=== PATIENT | female | born 1940 | race Caucasian/White ===

== ENCOUNTER 2016-08-22 03:39 | Emergency (ER) | payer MEDICARE, BC ==
[2016-08-22 03:48] VITALS: BP 140/60
[2016-08-22] MEDS ORDERED: LORazepam 2 MG/ML Syringe IVPUSH ONE (04:13)
--- NOTE | 2016-08-22 04:18 | EDM.PDOC ---
ED HPI GENERAL MEDICAL PROBLEM - General Chief Complaint: Cardiovascular Problem Stated Complaint: NAUSEOUS Time Seen by Provider: 08/22/16 04:14 Source of Information: Reports: Patient History Limitations: Reports: No Limitations - History of Present Illness INITIAL COMMENTS - FREE TEXT/NARRATIVE: gives h/o inner ear problem for many years and been taking meclizine for it. 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 denies vertigo but feels like passing out. denies associated CP/SOB/ FRANCO. nausous but no vomiting. denies weakness to legs. - Related Data Allergies Allergy/AdvReac Type Severity Reaction Status Date / Time oxycodone Allergy Dizziness Verified 08/22/16 03:48 penicillin Allergy Swelling Verified 08/22/16 03:48 Sulfa (Sulfonamide Allergy Itching Verified 08/22/16 03:48 Antibiotics) Home Meds: Home Meds Hydrochlorothiazide 25 mg PO DAILY 09/10/14 [History] Latanoprost [Xalatan 0.005% Ophth Soln] 1 drop EYEBOTH BEDTIME 09/10/14 [History ] Levothyroxine 75 mcg PO DAILY 09/10/14 [History] amLODIPine Besylate/Benazepril [Amlodipine-Benazepril 5-10 MG] 1 tab PO DAILY [History] atorvaSTATin [Lipitor] 10 mg PO BEDTIME 09/10/14 [History] Ascorbate Calcium [Vitamin C] 500 mg PO DAILY 07/22/15 [History] Aspirin 81 mg PO BRK 07/22/15 [History] Calcium Citrate/Vitamin D3 [Citracal + D Maximum Caplet] 2 each PO DAILY [History] Cinnamon Bark [Cinnamon] 1,000 mg PO DAILY 07/22/15 [History] Cyanocobalamin (Vitamin B-12) [Vitamin B-12] 100 mcg PO DAILY 07/22/15 [History] Fish Oil/DHA/EPA [Fish Oil 1,200 MG] 1 each PO DAILY 07/22/15 [History] Flaxseed Oil [Flaxseed] 1,000 mg PO DAILY 07/22/15 [History] LORazepam 0.5 mg PO BID PRN 07/22/15 [History] Meclizine [Antivert] 10 mg PO DAILY PRN 07/22/15 [History] Melatonin 5 mg PO BEDTIME 07/22/15 [History] Multivitamin [Multivitamins] 1 each PO DAILY 07/22/15 [History] Naproxen Sodium [Aleve] 2 tab PO DAILY PRN 07/22/15 [History] Polyethylene Glycol 3350 [Miralax] 17 gm PO DAILY 07/22/15 [History] Past Medical History HEENT History: Reports: Glaucoma Cardiovascular History: Reports: High Cholesterol, Hypertension Other Cardiovascular History: DVT 2014 Respiratory History: Reports: None Gastrointestinal History: Reports: Diverticulosis, Irritable Bowel Syndrome Genitourinary History: Reports: None 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: Musculoskeletal History: Reports: Arthritis, Gout Neurological History: Reports: None Psychiatric History: Reports: Anxiety Endocrine/Metabolic History: Reports: Hypothyroidism Hematologic History: Reports: Other (See Below) 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 Immunologic History: Reports: None Oncologic (Cancer) History: Reports: None Dermatologic History: Reports: None - Infectious Disease History Infectious Disease History: Reports: Chicken Pox, Measles - Past Surgical History Head Surgeries/Procedures: Reports: None Cardiovascular Surgical History: Reports: Vascular Surgery Female Surgical History: Reports: Hysterectomy, Salpingo-Oophorectomy Other Musculoskeletal Surgeries/Procedures:: bilateral bunion surgery, hammer toe repair Social & Family History - Family History HEENT: Reports: Glaucoma Cardiac: Reports: Heart Failure, Hypertension, [place] Respiratory: Reports: None GI: Reports: None : Reports: None OBGYN: Reports: None Musculoskeletal: Reports: Arthritis Neurological: Reports: CVA Psychiatric: Reports: None Endocrine/Metabolic: Reports: Diabetes, type II, Hypothyroidism Immunologic: Reports: None Dermatologic: Reports: Eczema Oncologic: Reports: Breast, Ovarian - Tobacco Use Smoking Status *Q: Never Smoker Second Hand Smoke Exposure: No - Caffeine Use Caffeine Use: Reports: Soda Caffeine Use Comment: 1 - Recreational Drug Use Recreational Drug Use: No - Living Situation & Occupation Living situation: Reports: , with Spouse Occupation: Retired ED ROS GENERAL - Review of Systems Review Of Systems: ROS reveals no pertinent complaints other than HPI. ED EXAM, GENERAL - Physical Exam Exam: See Below Exam Limited By: No Limitations General Appearance: Alert, WD/WN, Mild Distress, Other (dizziness) Eye Exam: Bilateral Eye: PERRL (pupils ess ER @ 4mm) Ears: Hearing Grossly Normal Throat/Mouth: Normal Voice, No Airway Compromise Head: Atraumatic Neck: Non-Tender, Full Range of Motion Respiratory/Chest: No Respiratory Distress Cardiovascular: Regular Rate, Rhythm GI/Abdominal: Soft, Non-Tender Neurological: Alert, Oriented, Normal Cognition, No Motor/Sensory Deficits, Other (gait limited to dizziness) Psychiatric: Flat Affect Skin Exam: Warm, Dry Lymphatic: No Adenopathy Course - Vital Signs Last Recorded V/S: Last Vital Signs Temp 36.0 C 08/22/16 03:44 Pulse 77 08/22/16 03:44 Resp 18 08/22/16 03:44 BP 140/60 08/22/16 03:44 Pulse Ox 100 08/22/16 03:44 Orthostatic Blood Pressure [ 154/65 Sitting] Orthostatic Blood Pressure [ 141/59 Supine] - Orders/Labs/Meds Orders: Active Orders 24 hr Category Date Time Status EKG 12 Lead [EKG Documentation Completion] [RC] STAT Care 08/22/16 04:12 Active Labs: Laboratory Tests 08/22/16 08/22/16 08/22/16 Range/Units 04:20 04:25 04:25 WBC 7.9 (5.0-10.0) 10^3/uL RBC 4.50 (4.2-5.4) 10^6/uL Hgb 15.0 (12.0-16.0) g/dL Hct 42.8 (37.0-47.0) % MCV 95.1 (80-100) fL MCH 33.3 (27.0-34.0) pg MCHC 35.0 (33.0-35.0) g/dL Plt Count 280 (150-450) 10^3/uL Neut % (Auto) 52.2 (42.2-75.2) % Lymph % (Auto) 36.9 (20.5-50.1) % Hawkins % (Auto) 8.9 H (2-8) % Eos % (Auto) 1.5 (1.0-3.0) % Baso % (Auto) 0.5 (0.0-1.0) % Sodium 138 (135-145) mmol/L Potassium 3.7 (3.6-5.0) mmol/L Chloride 100 L (101-111) mmol/L Carbon Dioxide 26.0 (21.0-31.0) mmol/L Anion Gap 15.7 BUN 17 (7-18) mg/dL Creatinine 0.6 (0.6-1.3) mg/dL Est Cr Clr Drug Dosing 56.40 mL/min Estimated GFR (MDRD) > 60 BUN/Creatinine Ratio 28.33 Glucose 129 H (74-105) mg/dL Calcium 10.2 (8.4-10.2) mg/dl Total Bilirubin 0.7 (0.2-1.0) mg/dL AST 27 (10-42) IU/L ALT 23 (10-60) IU/L Alkaline Phosphatase 97 (42-121) IU/L Troponin I < 0.02 (0.00-0.02) ng/ml Total Protein 7.3 (6.7-8.2) g/dl Albumin 4.5 (3.2-5.5) g/dl Globulin 2.8 Albumin/Globulin Ratio 1.61 Urine Color Light yellow (YELLOW) Urine Appearance Clear (CLEAR) Urine pH 8.5 (5.0-9.0) Ur Specific [place] 1.015 (1.005-1.030) Urine Protein Negative (NEGATIVE) Urine Glucose (UA) Negative (NEGATIVE) Urine Ketones Negative (NEGATIVE) Urine Occult Blood Negative (NEGATIVE) Urine Nitrite Negative (NEGATIVE) Urine Bilirubin Negative (NEGATIVE) Urine Urobilinogen 0.2 (0.2-1.0) mg/dL Ur Leukocyte Esterase Moderate H (NEGATIVE) Urine RBC 0-5 /HPF Urine WBC 5-10 H (0-5/HPF) /HPF Ur Epithelial Cells Occasional /HPF Urine Bacteria Moderate H (0-FEW/HPF) /HPF Meds: Medications Discontinued Medications Generic Name Dose Route Start Last Admin Trade Name Freq PRN Reason Stop Dose Admin Lorazepam 1 mg 08/22/16 04:13 Ativan IVPUSH 08/22/16 04:14 ONETIME ONE Meclizine HCl 12.5 mg 08/22/16 05:20 08/22/16 05:26 Antivert PO 08/22/16 05:21 12.5 mg ONETIME ONE Administration Promethazine HCl 25 mg 08/22/16 05:20 08/22/16 05:27 Phenergan IM 08/22/16 05:21 25 mg ONETIME ONE Administration - Re-Assessments/Exams Free Text/Narrative Re-Assessment/Exam: 08/22/16 06:04 re-exam; s/p IM phenergan + PO meclizine 30minutes = better. able to sit up. 08/22/16 06:29 re-exam; able to stand feeling much better but not 100%. wish to wait bit longer before leaving. 08/22/16 06:46 re-exam; feels good enough to go home. but still not 100% Departure - Departure Time of Disposition: 06:46 Disposition: Home, Self-Care 01 Condition: Good Clinical Impression: Vertigo Instructions: Vertigo, [id number] Forms: ED Department Discharge Additional Instructions: 1) see family doctor for possible ENT or NEUROLOGY REFERRAL 2) recheck if there is any change or concern 3) continue meclizine at home. - My Orders Last 24 Hours: My Active Orders 08/22/16 04:12 EKG 12 Lead [EKG Documentation Completion] [RC] STAT - Assessment/Plan Last 24 Hours: My Active Orders 08/22/16 04:12 EKG 12 Lead [EKG Documentation Completion] [RC] STAT
[2016-08-22 04:50] LABS: CHLORIDE,CL 100 mmol/L (101-111); SODIUM,NA 138 mmol/L (135-145)
[2016-08-22] MEDS ORDERED: Promethazine 25 MG/ML SDV IM ONE (05:20)
[2016-08-22] MEDS ORDERED: Meclizine 12.5 MG Tab PO ONE (05:20)
--- NOTE | 2016-09-12 11:18 | EKG ---
08/22/2016 - ALEJANDRA TERAN I reviewed the EKG and agree with the machine's reading. [facility] /[id number]
== END 2016-08-22 07:05 | disposition home or self-care (01) ==
LOC: DL.ED 03:39
DX: R42 Dizziness and giddiness (principal); E78.00 Pure hypercholesterolemia, unspecified; I10 Essential (primary) hypertension; M19.90 Unspecified osteoarthritis, unspecified site; F41.9 Anxiety disorder, unspecified; E03.9 Hypothyroidism, unspecified; Z90.710 Acquired absence of both cervix and uterus; Z98.890 Other specified postprocedural states; Z88.5 Allergy status to narcotic agent; Z88.0 Allergy status to penicillin; Z88.2 Allergy status to sulfonamides; Z79.899 Other long term (current) drug therapy; Z79.82 Long term (current) use of aspirin
CPT/HCPCS: 36415; 70450; 80053; 81001; 84484; 85025; 93005; 96372; 96374; 99284; A9270; J2550; 93010

== ENCOUNTER 2017-04-17 00:14 | Inpatient (IN) | payer MEDICARE, BC ==
[2017-04-17 01:23] LABS: CHLORIDE,CL 96 mmol/L (101-111); SODIUM,NA 131 mmol/L (135-145)
[2017-04-17] MEDS ORDERED: Potassium Chloride 10 MEQ in Premix Bag 1 BAG IV ONE (02:07)
[2017-04-17] MEDS ORDERED: Sodium Chloride 0.9% 1,000 ML IV ONE (02:08)
--- NOTE | 2017-04-17 04:04 | EDM.PDOC ---
ED HPI GENERAL MEDICAL PROBLEM - General Chief Complaint: Neurological Problem Stated Complaint: AMBULANCE Time Seen by Provider: 04/17/17 00:20 Source of Information: Reports: Patient History Limitations: Reports: No Limitations - History of Present Illness INITIAL COMMENTS - FREE TEXT/NARRATIVE: ED via [facility] with c/o dizziness. Reports hx of vertigo type symptoms. Started yesterday, took Meclazine and improved. Again this am around 1130, Tonight very dizzy, 2 loose stools, generalized weakness from feeling unsteady and dizzy. had to help her from Bathroom. Denies fever chills. No cold symptoms. Dizziness worse with movement and turning head. Some nausea . - Related Data Allergies Allergy/AdvReac Type Severity Reaction Status Date / Time oxycodone Allergy Dizziness Verified 04/17/17 04:45 penicillin Allergy Swelling Verified 04/17/17 04:45 Sulfa (Sulfonamide Allergy Itching Verified 04/17/17 04:45 Antibiotics) Home Meds: Home Meds Hydrochlorothiazide 25 mg PO DAILY 09/10/14 [History] Latanoprost [Xalatan 0.005% Ophth Soln] 1 drop EYEBOTH BEDTIME 09/10/14 [History ] Levothyroxine 75 mcg PO DAILY 09/10/14 [History] amLODIPine Besylate/Benazepril [Amlodipine-Benazepril 5-10 MG] 1 tab PO DAILY [History] atorvaSTATin [Lipitor] 10 mg PO BEDTIME 09/10/14 [History] Ascorbate Calcium [Vitamin C] 500 mg PO DAILY 07/22/15 [History] Aspirin 81 mg PO BRK 07/22/15 [History] Cinnamon Bark [Cinnamon] 1,000 mg PO DAILY 07/22/15 [History] Cyanocobalamin (Vitamin B-12) [Vitamin B-12] 100 mcg PO DAILY 07/22/15 [History] Flaxseed Oil [Flaxseed] 1,000 mg PO DAILY 07/22/15 [History] LORazepam 0.5 mg PO BID PRN 07/22/15 [History] Meclizine [Antivert] 10 mg PO DAILY PRN 07/22/15 [History] Melatonin 5 mg PO BEDTIME 07/22/15 [History] Multivitamin [Multivitamins] 1 each PO DAILY 07/22/15 [History] Naproxen Sodium [Aleve] 2 tab PO DAILY PRN 07/22/15 [History] Polyethylene Glycol 3350 [Miralax] 17 gm PO DAILY 07/22/15 [History] Past Medical History HEENT History: Reports: Glaucoma, Impaired Vision Cardiovascular History: Reports: High Cholesterol, Hypertension Other Cardiovascular History: DVT 2014 Respiratory History: Reports: None Gastrointestinal History: Reports: Diverticulosis, Irritable Bowel Syndrome Genitourinary History: Reports: None 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: Musculoskeletal History: Reports: Arthritis, Gout Neurological History: Reports: None Psychiatric History: Reports: Anxiety Endocrine/Metabolic History: Reports: Hypothyroidism Hematologic History: Reports: Other (See Below) 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 Immunologic History: Reports: None Oncologic (Cancer) History: Reports: None Dermatologic History: Reports: None - Infectious Disease History Infectious Disease History: Reports: Chicken Pox, Measles - Past Surgical History Head Surgeries/Procedures: Reports: None Cardiovascular Surgical History: Reports: Vascular Surgery Female Surgical History: Reports: Hysterectomy, Salpingo-Oophorectomy Other Musculoskeletal Surgeries/Procedures:: bilateral bunion surgery, hammer toe repair Social & Family History - Family History Family Medical History: Noncontributory HEENT: Reports: Glaucoma Cardiac: Reports: Heart Failure, Hypertension, [place] Respiratory: Reports: None GI: Reports: None : Reports: None OBGYN: Reports: None Musculoskeletal: Reports: Arthritis Neurological: Reports: CVA Psychiatric: Reports: None Endocrine/Metabolic: Reports: Diabetes, type II, Hypothyroidism Immunologic: Reports: None Dermatologic: Reports: Eczema Oncologic: Reports: Breast, Ovarian - Tobacco Use Smoking Status *Q: Never Smoker Second Hand Smoke Exposure: No - Caffeine Use Caffeine Use: Reports: Soda Caffeine Use Comment: 1 - Recreational Drug Use Recreational Drug Use: No - Living Situation & Occupation Living situation: Reports: , with Spouse Occupation: Retired ED ROS GENERAL - Review of Systems Review Of Systems: ROS reveals no pertinent complaints other than HPI. ED EXAM, NEURO - Physical Exam Exam: See Below Exam Limited By: No Limitations General Appearance: Alert, Mild Distress Eye Exam: Bilateral Eye: EOMI, PERRL Ears: Normal External Exam, Normal TMs Nose: Normal Inspection Throat/Mouth: Normal Inspection, Other (mucus membranes moist) Head Exam: Atraumatic, Normocephalic Neck: Normal Inspection, Full Range of Motion. No: Lymphadenopathy (L), Lymphadenopathy (R) Respiratory/Chest: No Respiratory Distress, Lungs Clear, Normal Breath Sounds Cardiovascular: Normal Peripheral Pulses, Regular Rate, Rhythm GI/Abdominal: Normal Bowel Sounds Neurological: Alert, Normal Mood/Affect, No Motor/Sensory Deficits, Oriented x 3 , Other (Dizzy and naauseated with minimal movment of head with repositioning) Back Exam: Normal Inspection. No: CVA Tenderness (L), CVA Tenderness (R) Extremities: Normal Inspection Psychiatric: Normal Affect Skin Exam: Warm, Dry, Intact, Normal Color Course - Vital Signs Last Recorded V/S: Last Vital Signs Temp 98.2 F 04/18/17 08:46 Pulse 71 04/18/17 08:46 Resp 20 04/18/17 08:46 BP 144/58 H 04/18/17 08:46 Pulse Ox 99 04/18/17 10:02 - Orders/Labs/Meds Labs: Laboratory Tests 04/17/17 04/17/17 04/17/17 Range/Units 00:15 00:15 00:15 WBC 9.5 (5.0-10.0) 10^3/uL RBC 4.21 (4.2-5.4) 10^6/uL Hgb 13.8 (12.0-16.0) g/dL Hct 38.8 (37.0-47.0) % MCV 92.2 (80-100) fL MCH 32.8 (27.0-34.0) pg MCHC 35.6 H (33.0-35.0) g/dL Plt Count 318 (150-450) 10^3/uL Neut % (Auto) 55.9 (42.2-75.2) % Lymph % (Auto) 33.2 (20.5-50.1) % [place] % (Auto) 9.7 H (2-8) % Eos % (Auto) 0.8 L (1.0-3.0) % Baso % (Auto) 0.4 (0.0-1.0) % Sodium 131 L (135-145) mmol/L Potassium 2.8 L (3.6-5.0) mmol/L Chloride 96 L (101-111) mmol/L Carbon Dioxide 22.0 (21.0-31.0) mmol/L Anion Gap 15.8 BUN 17 (7-18) mg/dL Creatinine 0.6 (0.6-1.3) mg/dL Est Cr Clr Drug Dosing 70.84 mL/min Estimated GFR (MDRD) > 60 BUN/Creatinine Ratio 28.33 Glucose 162 H (74-105) mg/dL Lactic Acid 2.1 (0.5-2.2) mmol/L Calcium 9.1 (8.4-10.2) mg/dl Total Bilirubin 0.4 (0.2-1.0) mg/dL AST 25 (10-42) IU/L ALT 17 (10-60) IU/L Alkaline Phosphatase 92 (42-121) IU/L Troponin I < 0.02 (0.00-0.02) ng/ml Total Protein 6.8 (6.7-8.2) g/dl Albumin 4.2 (3.2-5.5) g/dl Globulin 2.6 Albumin/Globulin Ratio 1.62 Amylase 62 (28-100) U/L Lipase 16 L (22-51) U/L Urine Color (YELLOW) Urine Appearance (CLEAR) Urine pH (5.0-9.0) Ur Specific [place] (1.005-1.030) Urine Protein (NEGATIVE) Urine Glucose (UA) (NEGATIVE) Urine Ketones (NEGATIVE) Urine Occult Blood (NEGATIVE) Urine Nitrite (NEGATIVE) Urine Bilirubin (NEGATIVE) Urine Urobilinogen (0.2-1.0) mg/dL Ur Leukocyte Esterase (NEGATIVE) Urine RBC /HPF Urine WBC (0-5/HPF) /HPF Ur Epithelial Cells /HPF Urine Bacteria (0-FEW/HPF) /HPF 04/17/17 Range/Units 02:09 WBC (5.0-10.0) 10^3/uL RBC (4.2-5.4) 10^6/uL Hgb (12.0-16.0) g/dL Hct (37.0-47.0) % MCV (80-100) fL MCH (27.0-34.0) pg MCHC (33.0-35.0) g/dL Plt Count (150-450) 10^3/uL Neut % (Auto) (42.2-75.2) % Lymph % (Auto) (20.5-50.1) % [place] % (Auto) (2-8) % Eos % (Auto) (1.0-3.0) % Baso % (Auto) (0.0-1.0) % Sodium (135-145) mmol/L Potassium (3.6-5.0) mmol/L Chloride (101-111) mmol/L Carbon Dioxide (21.0-31.0) mmol/L Anion Gap BUN (7-18) mg/dL Creatinine (0.6-1.3) mg/dL Est Cr Clr Drug Dosing mL/min Estimated GFR (MDRD) BUN/Creatinine Ratio Glucose (74-105) mg/dL Lactic Acid (0.5-2.2) mmol/L Calcium (8.4-10.2) mg/dl Total Bilirubin (0.2-1.0) mg/dL AST (10-42) IU/L ALT (10-60) IU/L Alkaline Phosphatase (42-121) IU/L Troponin I (0.00-0.02) ng/ml Total Protein (6.7-8.2) g/dl Albumin (3.2-5.5) g/dl Globulin Albumin/Globulin Ratio Amylase (28-100) U/L Lipase (22-51) U/L Urine Color Yellow (YELLOW) Urine Appearance Clear (CLEAR) Urine pH 8.5 (5.0-9.0) Ur Specific [place] 1.015 (1.005-1.030) Urine Protein Negative (NEGATIVE) Urine Glucose (UA) 100 H (NEGATIVE) Urine Ketones 15 H (NEGATIVE) Urine Occult Blood Negative (NEGATIVE) Urine Nitrite Negative (NEGATIVE) Urine Bilirubin Negative (NEGATIVE) Urine Urobilinogen 0.2 (0.2-1.0) mg/dL Ur Leukocyte Esterase Small H (NEGATIVE) Urine RBC 0-5 /HPF Urine WBC 0-5 (0-5/HPF) /HPF Ur Epithelial Cells Few /HPF Urine Bacteria Few (0-FEW/HPF) /HPF Meds: Medications Discontinued Medications Generic Name Dose Route Start Last Admin Trade Name Freq PRN Reason Stop Dose Admin Amlodipine Besylate 5 mg 04/17/17 09:30 04/18/17 08:38 Norvasc PO 5 mg DAILY NANCY Administration Ascorbic Acid 500 mg 04/17/17 09:30 04/18/17 08:37 Vitamin C PO 500 mg DAILY NANCY Administration Aspirin 81 mg 04/17/17 08:00 04/18/17 08:38 Aspirin PO 81 mg BRK NANCY Administration Atorvastatin Calcium 10 mg 04/17/17 21:00 04/17/17 21:16 Lipitor PO 10 mg BEDTIME NANCY Administration Benazepril HCl 10 mg 04/17/17 10:45 04/18/17 08:36 Lotensin PO 10 mg DAILY NANCY Administration Cyanocobalamin 100 mcg 04/17/17 09:30 04/18/17 08:37 Vitamin B12 PO 100 mcg DAILY NANCY Administration Docusate Sodium 100 mg 04/17/17 10:02 Colace PO BID PRN Constipation Enoxaparin Sodium 40 mg 04/18/17 09:00 04/18/17 08:38 Lovenox SUBCUT 40 mg DAILY NANCY Administration Hydrochlorothiazide 25 mg 04/17/17 09:30 04/18/17 08:37 Hydrochlorothiazide PO 25 mg DAILY NANCY Administration Potassium Chloride 10 meq/ 100 mls @ 100 mls/hr 04/17/17 02:07 04/17/17 03:08 Premix IV 04/17/17 03:06 100 mls/hr ONETIME ONE Administration Sodium Chloride 1,000 mls @ 200 mls/hr 04/17/17 02:08 04/17/17 09:35 Normal Saline IV 04/17/17 07:07 Infused .BOLUS ONE Infusion Sodium Chloride 1,000 mls @ 150 mls/hr 04/17/17 10:15 04/17/17 18:17 Normal Saline IV 04/17/17 16:54 150 mls/hr ASDIRECTED NANCY Infusion Latanoprost 0 ml 04/17/17 21:00 04/17/17 21:19 Xalatan 0.005% Ophth Soln EYEBOTH 1 drop BEDTIME NANCY Administration Levothyroxine Sodium 75 mcg 04/18/17 06:00 04/18/17 05:46 Levothyroxine PO 75 mcg DAILY@0600 NANCY Administration Lorazepam 0.5 mg 04/17/17 09:17 Ativan PO BID PRN Anxiety Magnesium Hydroxide 30 ml 04/17/17 10:02 Milk Of Magnesia PO Q12H PRN Constipation Meclizine HCl 25 mg 04/17/17 14:00 04/18/17 05:46 Antivert PO 25 mg Q8HR NANCY Administration Multivitamins 1 each 04/17/17 09:30 04/18/17 08:37 Thera PO 1 each DAILY NANCY Administration Non-Formulary Medication 1,000 mg 04/17/17 09:30 Cinnamon Bark [Cinnamon] PO DAILY NANCY Non-Formulary Medication 1,000 mg 04/17/17 09:30 Flaxseed Oil [Flaxseed] PO DAILY NANCY Non-Formulary Medication 5 mg 04/17/17 21:00 Melatonin [Melatonin] PO BEDTIME NANCY Ondansetron HCl 4 mg 04/17/17 10:02 Zofran IVPUSH Q6H PRN Nausea/Vomiting Polyethylene Glycol 17 gm 04/17/17 09:30 04/18/17 08:37 Miralax PO 17 gm DAILY NANCY Administration Potassium Chloride 60 meq 04/17/17 08:45 04/17/17 09:33 Klor-Con 10 PO 04/17/17 08:46 60 meq ONETIME ONE Administration Sodium Chloride 10 ml 04/17/17 11:05 Saline Flush FLUSH ASDIRECTED PRN Keep Vein Open - Radiology Interpretation Free Text/Narrative:: CT head and abdomen unremarkable, no acute process Departure - Departure Time of Disposition: 04:00 Disposition: Admitted As Inpatient 65 Condition: Fair Clinical Impression: Diarrhea, Hypokalemia, Dizzy - Discharge Information
[2017-04-17] MEDS ORDERED: Potassium Chloride 10 MEQ Tab.ER PO ONE (08:45)
[2017-04-17] MEDS ORDERED: LORazepam 0.5 MG Tab PO PRN (09:17)
[2017-04-17] MEDS ORDERED: FLAXSEED OIL 1000 MG PO SCH (09:30)
[2017-04-17] MEDS ORDERED: Non-Formulary Medication 1 Each (Cinnamon Bark [Cinnamon] 1,000 MG) PO SCH (09:30)
[2017-04-17] MEDS ORDERED: Ondansetron 4 MG/2 ML SDV IVPUSH PRN (10:02)
[2017-04-17] MEDS ORDERED: Docusate Sodium 100 MG Cap PO PRN (10:02)
[2017-04-17] MEDS ORDERED: Magnesium Hydroxide 400 MG/5 ML Susp 30 ML Cup PO PRN (10:02)
[2017-04-17] MEDS ORDERED: Sodium Chloride 0.9% 1,000 ML IV SCH (10:15)
--- NOTE | 2017-04-17 10:20 | PCM.HP ---
H&P History of Present Illness - General Date of Service: 04/17/17 Admit Problem/Dx: Admission Diagnosis/Problem Admission Diagnosis/Problem Diarrhea Source of Information: Patient History Limitations: Reports: No Limitations - History of Present Illness Initial Comments - Free Text/Narative: 76-year-old female with past medical history of vertigo, impaired vision, glaucoma, high cholesterol, hypertension, DVT, diverticulosis, irritable bowel syndrome, arthritis, anxiety, hypothyroidism, constipation, presents to the emergency room for having vertigo-like dizziness. Patient stated that she is to have vertigo spells but she did not have them for many years.She states that last Thursday she started feeling dizzy sporadically without other symptoms. At that time she took one dose of meclizine 25 mg by mouth. Yesterday at 6:30 PM she had stronger episode of the dizziness and she took meclizine again. At 11 :30 PM she had very strong 1 where she was not able to move her head and felt unbalanced. She was very nauseous and had diarrhea twice.So she came to the emergency room. Patient stated that the dizziness as a spinning feeling gets worse when she gets up or move her head. She received 1 L of normal saline in the emergency room. Now she feels better but still got dizzy when she sat in bed and moves her head. She admitted having cold symptoms with stuffy nose and dry cough when he can go but get better. Currently she has just mild occasional cough. She denies fever, chills, vomiting, headache, change in vision, change in hearing, sore throat, chest pain, shortness breath, abdominal pain, urinary symptoms, unilateral weakness/numbness/tingling, rash, lower extremities edema, any other symptoms or concerns. In the emergency room her potassium was 2.8. She received potassium chloride 10 mEq IV once. WBC 9.5. Hemoglobin 13.8. Platelets 318. Sodium 131. Potassium 2.8. Creatinine 0.6. Blood glucose 162. Lactic acid 2.1. Troponin less than 0.02. Lipase 16. Urinalysis reported small leukocytes esterase, otherwise unremarkable. CT head reported no acute findings. CT abdomen also did not report acute findings. - Related Data Allergies/Adverse Reactions: Allergies Allergy/AdvReac Type Severity Reaction Status Date / Time oxycodone Allergy Dizziness Verified 04/17/17 04:45 penicillin Allergy Swelling Verified 04/17/17 04:45 Sulfa (Sulfonamide Allergy Itching Verified 04/17/17 04:45 Antibiotics) Home Medications: Home Meds Hydrochlorothiazide 25 mg PO DAILY 09/10/14 [History] Latanoprost [Xalatan 0.005% Ophth Soln] 1 drop EYEBOTH BEDTIME 09/10/14 [History ] Levothyroxine 75 mcg PO DAILY 09/10/14 [History] amLODIPine Besylate/Benazepril [Amlodipine-Benazepril 5-10 MG] 1 tab PO DAILY [History] atorvaSTATin [Lipitor] 10 mg PO BEDTIME 09/10/14 [History] Ascorbate Calcium [Vitamin C] 500 mg PO DAILY 07/22/15 [History] Aspirin 81 mg PO BRK 07/22/15 [History] Cinnamon Bark [Cinnamon] 1,000 mg PO DAILY 07/22/15 [History] Cyanocobalamin (Vitamin B-12) [Vitamin B-12] 100 mcg PO DAILY 07/22/15 [History] Flaxseed Oil [Flaxseed] 1,000 mg PO DAILY 07/22/15 [History] LORazepam 0.5 mg PO BID PRN 07/22/15 [History] Meclizine [Antivert] 10 mg PO DAILY PRN 07/22/15 [History] Melatonin 5 mg PO BEDTIME 07/22/15 [History] Multivitamin [Multivitamins] 1 each PO DAILY 07/22/15 [History] Naproxen Sodium [Aleve] 2 tab PO DAILY PRN 07/22/15 [History] Polyethylene Glycol 3350 [Miralax] 17 gm PO DAILY 07/22/15 [History] Past Medical History HEENT History: Reports: Glaucoma, Impaired Vision Cardiovascular History: Reports: High Cholesterol, Hypertension Other Cardiovascular History: DVT 2014 Respiratory History: Reports: None Gastrointestinal History: Reports: Diverticulosis, Irritable Bowel Syndrome Genitourinary History: Reports: None [employer] History: Reports: Musculoskeletal History: Reports: Arthritis, Gout Neurological History: Reports: None Psychiatric History: Reports: Anxiety Endocrine/Metabolic History: Reports: Hypothyroidism Hematologic History: Reports: Other (See Below) 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 Immunologic History: Reports: None Oncologic (Cancer) History: Reports: None Dermatologic History: Reports: None - Infectious Disease History Infectious Disease History: Reports: Chicken Pox, Measles - Past Surgical History Head Surgeries/Procedures: Reports: None Cardiovascular Surgical History: Reports: Vascular Surgery Female Surgical History: Reports: Hysterectomy, Salpingo-Oophorectomy Other Musculoskeletal Surgeries/Procedures:: bilateral bunion surgery, hammer toe repair Social & Family History - Family History Family Medical History: Noncontributory HEENT: Reports: Glaucoma Cardiac: Reports: Heart Failure, Hypertension, [place] Respiratory: Reports: None GI: Reports: None : Reports: None OBGYN: Reports: None Musculoskeletal: Reports: Arthritis Neurological: Reports: CVA Psychiatric: Reports: None Endocrine/Metabolic: Reports: Diabetes, type II, Hypothyroidism Immunologic: Reports: None Dermatologic: Reports: Eczema Oncologic: Reports: Breast, Ovarian - Tobacco Use Smoking Status *Q: Never Smoker Second Hand Smoke Exposure: No - Caffeine Use Caffeine Use: Reports: Coffee Caffeine Use Comment: 1 - Recreational Drug Use Recreational Drug Use: No - Living Situation & Occupation Living situation: Reports: , with Spouse Occupation: Retired H&P Review of Systems - Review of Systems: Review Of Systems: ROS reveals no pertinent complaints other than HPI. Exam - Exam Exam: See Below - Vital Signs Vital Signs: Last Vital Signs Temp 37.3 C 04/17/17 08:02 Pulse 68 04/17/17 08:02 Resp 18 04/17/17 08:02 BP 105/48 L 04/17/17 08:02 Pulse Ox 99 04/17/17 08:02 Weight: 57.153 kg - Exam General: Alert, Oriented, Cooperative, Mild Distress (Patient got dizzy when she sat up in bed and turned her head). No: Moderate Distress, Severe Distress , Sedated, Lethargic, Obtunded HEENT: Conjunctiva Clear, EACs Clear, EOMI, Hearing Intact, Mucosa Moist & [place] , Nares Patent, Normal Nasal Septum, Posterior Pharynx Clear, Pupils Equal, Pupils Reactive, TMs Clear Neck: Supple, Trachea Midline, +2 Carotid Pulse wo Bruit Lungs: Clear to Auscultation, Normal Respiratory Effort. No: Decreased Breath Sounds, Crackles, Rales, Rhonchi, Rub, Stridor, Wheezing Cardiovascular: Regular Rate, Regular Rhythm GI/Abdominal Exam: Normal Bowel Sounds, Soft, Non-Tender, No Organomegaly, No Distention, No Abnormal Bruit, No Mass (Female) Exam: Deferred Rectal (Female) Exam: Deferred Back Exam: Normal Inspection, Full Range of Motion. No: CVA Tenderness (L), CVA Tenderness (R) Extremities: Normal Inspection, Normal Range of Motion, Non-Tender, No Pedal Edema, Normal Capillary Refill Skin: Warm, Dry, Intact Neurological: Cranial Nerves Intact Neuro Extensive - Mental Status: Alert, Oriented x3, Normal Mood/Affect Psychiatric: Alert, Normal Affect, Normal Mood - Patient Data Result Diagrams: 04/17/17 00:15 04/17/17 00:15 *Q Meaningful Use (ADM) - VTE *Q VTE Criteria *Q: - Stroke *Q Stroke Criteria *Q: - AMI *Q AMI Criteria *Q: - Problem List (1) Nausea SNOMED Code(s): 646320419 ICD Code: R11.0 - NAUSEA Status: Acute Current Visit: Yes (2) Hypokalemia SNOMED Code(s): 95824912 ICD Code: E87.6 - HYPOKALEMIA Status: Acute Current Visit: Yes (3) Diarrhea SNOMED Code(s): 26630986 ICD Code: R19.7 - DIARRHEA, UNSPECIFIED Status: Acute Current Visit: No (4) Hyponatremia syndrome SNOMED Code(s): 4886602 ICD Code: E87.1 - HYPO-OSMOLALITY AND HYPONATREMIA Status: Chronic Current Visit: No (5) Vertigo SNOMED Code(s): 118411076 ICD Code: R42 - DIZZINESS AND GIDDINESS Status: Acute Current Visit: No Problem List Initiated/Reviewed/Updated: Yes Orders Last 24hrs: Active Orders 24 hr Category Date Time Status Admission Status [Patient Status] [ADT] Routine ADT 04/17/17 04:00 Active Patient Status [ADT] Routine ADT 04/17/17 10:02 Active Intake and Output [RC] Q6H Care 04/17/17 10:03 Active Notify Provider Vital Signs [RC] ASDIRECTED Care 04/17/17 10:04 Active Oxygen Therapy [RC] PRN Care 04/17/17 10:02 Active Up ad Sylvia [RC] ASDIRECTED Care 04/17/17 10:02 Active VTE/DVT Education [RC] PER UNIT ROUTINE Care 04/17/17 10:02 Active Vital Signs [RC] Q4H Care 04/17/17 10:02 Active PT Evaluation and Treatment [CONS] Routine Cons 04/17/17 10:02 Active Regular Diet [DIET] Diet 04/17/17 Breakfast Active BASIC METABOLIC PANEL,BMP [CHEM] AM Lab 04/18/17 05:11 Ordered CBC WITH AUTO DIFF [HEME] AM Lab 04/18/17 05:11 Ordered POTASSIUM,K [CHEM] Timed Lab 04/17/17 14:00 Ordered Ascorbate Calcium [Vitamin C] Med 04/17/17 09:30 Ordered 500 mg PO DAILY Aspirin Med 04/17/17 08:00 Ordered 81 mg PO BRK Cinnamon Bark [Cinnamon] Med 04/17/17 09:30 Ordered 1,000 mg PO DAILY Cyanocobalamin (Vitamin B12) [Vitamin B12] Med 04/17/17 09:30 Ordered 100 mcg PO DAILY Docusate Sodium [Colace] Med 04/17/17 10:02 Ordered 100 mg PO BID PRN Enoxaparin [Lovenox] Med 04/18/17 09:00 Ordered 40 mg SUBCUT DAILY Flaxseed Oil [Flaxseed] Med 04/17/17 09:30 Ordered 1,000 mg PO DAILY Hydrochlorothiazide Med 04/17/17 09:30 Ordered 25 mg PO DAILY LORazepam [Ativan] Med 04/17/17 09:17 Ordered 0.5 mg PO BID PRN Latanoprost [Xalatan 0.005% Ophth Soln] Med 04/17/17 21:00 Ordered DOSE ml EYEBOTH BEDTIME Levothyroxine Med 04/17/17 09:30 Ordered 75 mcg PO DAILY Magnesium Hydroxide [Milk of Magnesia] Med 04/17/17 10:02 Ordered 30 ml PO Q12H PRN Melatonin [Melatonin] Med 04/17/17 21:00 Ordered 5 mg PO BEDTIME Multivitamin [Multivitamins] Med 04/17/17 09:30 Ordered 1 each PO DAILY Ondansetron [Zofran] Med 04/17/17 10:02 Ordered 4 mg IVPUSH Q6H PRN Polyethylene Glycol 3350 [MiraLAX] Med 04/17/17 09:30 Ordered 17 gm PO DAILY Sodium Chloride 0.9% [Normal Saline] 1,000 ml Med 04/17/17 10:15 Ordered IV ASDIRECTED amLODIPine Besylate/Benazepril [Amlodipine-Benazepril 5 Med 04/17/17 09:30 Ordered -10 MG] 1 tab PO DAILY atorvaSTATin [Lipitor] Med 04/17/17 21:00 Ordered 10 mg PO BEDTIME Resuscitation Status Routine Resus Stat 04/17/17 10:02 Ordered Medication Orders Aspirin (Aspirin) 81 mg PO BRK NANCY Atorvastatin Calcium (Lipitor) 10 mg PO BEDTIME NANCY Cyanocobalamin (Vitamin B12) 100 mcg PO DAILY NANCY Docusate Sodium (Colace) 100 mg PO BID PRN PRN Reason: Constipation Enoxaparin Sodium (Lovenox) 40 mg SUBCUT DAILY NANCY Hydrochlorothiazide (Hydrochlorothiazide) 25 mg PO DAILY NANCY Sodium Chloride (Normal Saline) 1,000 mls @ 150 mls/hr IV ASDIRECTED NANCY Stop: 04/17/17 16:54 Latanoprost (Xalatan 0.005% Ophth Soln) ml EYEBOTH BEDTIME NANCY Levothyroxine Sodium (Levothyroxine) 75 mcg PO DAILY NANCY Lorazepam (Ativan) 0.5 mg PO BID PRN PRN Reason: Anxiety Magnesium Hydroxide (Milk Of Magnesia) 30 ml PO Q12H PRN PRN Reason: Constipation Non-Formulary Medication (Amlodipine Besylate/Benazepril [Amlodipine-Benazepril 5-10 Mg]) 1 tab PO DAILY NANCY Non-Formulary Medication (Ascorbate Calcium [Vitamin C]) 500 mg PO DAILY NANCY Non-Formulary Medication (Cinnamon Bark [Cinnamon]) 1,000 mg PO DAILY NANCY Non-Formulary Medication (Flaxseed Oil [Flaxseed]) 1,000 mg PO DAILY NANCY Non-Formulary Medication (Melatonin [Melatonin]) 5 mg PO BEDTIME NANCY Non-Formulary Medication (Multivitamin [Multivitamins]) 1 each PO DAILY NANCY Ondansetron HCl (Zofran) 4 mg IVPUSH Q6H PRN PRN Reason: Nausea/Vomiting Polyethylene Glycol (Miralax) 17 gm PO DAILY NANCY Assessment/Plan Comment:: 76-year-old female with history of vertigo and other comorbidities as above presented with vertigo symptoms. Patient had cold symptoms about 1 week ago and she is recovering from it. My impression patient has labyrinthitis but also could be part of her previous vertigo history which could be benign paroxysmal peripheral vertigo. #Vertigo -Meclizine 25 mg 3 times a day scheduled -Physical therapy to evaluate and treat -Another liter of normal saline infusion at 150 mL per hour -Spoke about other options in case meclizine and physical therapy is not working , such as Ativan, prednisone, Reglan -2 sets of blood culture ordered in emergency room #Hypokalemia Patient received potassium chloride 10 mEq IV once in ER -Give 60 mEq of potassium chloride orally once now -Check potassium at 2 PM today #Hyponatremia It seems to be chronic Normal saline infusion as above #Diarrhea However CT scan reported large amount of stool throughout the colon. For this can be overflow diarrhea. Patient stated that she had colonoscopy 1 year ago and noncancerous polyps were removed -Continue MiraLAX daily. -We'll do trial of laxative such as milk of magnesia and edema when her dizziness improves. #Small leukocyte esterase in urine -Urine culture ordered -Antibiotics are not indicated unless urine culture comes back positive. #Hypothyroidism Continue levothyroxine -Check TSH #Essential hypertension Continue home medications Lovenox for DVT prophylaxis CODE STATUS: Full
[2017-04-17] MEDS ORDERED: Sodium Chloride 0.9% 10 ML Syringe FLUSH PRN (11:05)
[2017-04-17] MEDS: Ascorbic Acid 500 MG Tab PO SCH (12:27)
[2017-04-17] MEDS: Benazepril 10 MG Tab PO SCH ×2 (12:27→12:41)
[2017-04-17] MEDS: Aspirin 81 MG Tab.Chew PO SCH (12:27)
[2017-04-17] MEDS: Cyanocobalamin (Vitamin B12) 100 MCG Tab PO SCH (12:27)
[2017-04-17] MEDS: Multivitamins,Therapeutic Tab PO SCH (12:27)
[2017-04-17] MEDS: amLODIPine 5 MG Tab PO SCH ×2 (12:28→12:41)
[2017-04-17] MEDS: Hydrochlorothiazide 25 MG Tab PO SCH ×2 (12:28→12:40)
[2017-04-17] MEDS: Polyethylene Glycol 3350 Powder 17 GM Packet PO SCH (12:29)
[2017-04-17] MEDS: Meclizine 12.5 MG Tab PO SCH ×2 (14:38→21:16)
[2017-04-17] MEDS ORDERED: Latanoprost 0.005% Ophth Soln 2.5 ML Bottle EYEBOTH SCH (21:00)
[2017-04-17] MEDS ORDERED: Non-Formulary Medication 1 Each (Melatonin [Melatonin] 5 MG) PO SCH (21:00)
[2017-04-17] MEDS ORDERED: atorvaSTATin 10 MG Tab PO SCH (21:00)
[2017-04-18] MEDS: Meclizine 12.5 MG Tab PO SCH (05:46)
[2017-04-18] MEDS ORDERED: Levothyroxine 75 MCG Tab PO SCH (06:00)
[2017-04-18 07:04] LABS: CHLORIDE,CL 106 mmol/L (101-111); SODIUM,NA 136 mmol/L (135-145)
[2017-04-18] MEDS: Benazepril 10 MG Tab PO SCH (08:36)
[2017-04-18] MEDS: Ascorbic Acid 500 MG Tab PO SCH (08:37)
[2017-04-18] MEDS: Cyanocobalamin (Vitamin B12) 100 MCG Tab PO SCH (08:37)
[2017-04-18] MEDS: Polyethylene Glycol 3350 Powder 17 GM Packet PO SCH (08:37)
[2017-04-18] MEDS: Multivitamins,Therapeutic Tab PO SCH (08:37)
[2017-04-18] MEDS: Hydrochlorothiazide 25 MG Tab PO SCH (08:37)
[2017-04-18] MEDS: amLODIPine 5 MG Tab PO SCH (08:38)
[2017-04-18] MEDS: Aspirin 81 MG Tab.Chew PO SCH (08:38)
[2017-04-18 08:39] VITALS: BP 144/58
[2017-04-18] MEDS ORDERED: Enoxaparin 40 MG/0.4 ML Syringe SUBCUT SCH (09:00)
--- NOTE | 2017-04-18 10:50 | PCM.DCSUM1 ---
Discharge Summary - Hospital Course Free Text/Narrative:: She was admitted with vertogo and unsteadiness. She has received IVF and replacement of potassium ( on admission potassium was 2.8 meq/L) . she is doing well and after receiving Miralax she had good Bowel movement. She feels good today and will be going home. HPI Initial Comments: This is a 76-year-old female with past medical history of vertigo, impaired vision, glaucoma, high cholesterol, hypertension, DVT, diverticulosis, irritable bowel syndrome, arthritis, anxiety, hypothyroidism, constipation, presents to the emergency room for having vertigo-like dizziness. Patient stated that she is to have vertigo spells but she did not have them for many years.She states that last Thursday she started feeling dizzy sporadically without other symptoms. At that time she took one dose of meclizine 25 mg by mouth. Yesterday at 6:30 PM she had stronger episode of the dizziness and she took meclizine again. At 11:30 PM she had very strong 1 where she was not able to move her head and felt unbalanced. She was very nauseous and had diarrhea twice,So she came to the emergency room. Patient stated that the dizziness as a spinning feeling gets worse when she gets up or move her head. She received 1 L of normal saline in the emergency room. Now she feels better but still got dizzy when she sat in bed and moves her head. She admitted having cold symptoms with stuffy nose and dry cough when he can go but get better. Currently she has just mild occasional cough. O admission she Denied fever, chills, vomiting, headache, change in vision, change in hearing, sore throat, chest pain, shortness breath, abdominal pain, urinary symptoms, unilateral weakness/numbness /tingling, rash, lower extremities edema, any other symptoms or concerns. In the emergency room her potassium was 2.8 meq/L She received potassium chloride replacement orally and IV. CT head reported no acute findings. CT abdomen also did not report acute findings. She feels better today and had good bowel Movement, tolerating diet and will be going home. - Discharge Data Discharge Date: 04/18/17 Discharge Disposition: Home, Self-Care 01 Condition: Stable - Patient Instructions Diet: Regular Diet as Tolerated Activity: As Tolerated Showering/Bathing: May Shower Notify Provider of: Fever, Nausea and/or Vomiting Other/Special Instructions: 76-year-old female with past medical history of vertigo, impaired vision, glaucoma, high cholesterol, hypertension, DVT, diverticulosis, irritable bowel syndrome, arthritis, anxiety, hypothyroidism, constipation, presents to the emergency room for having vertigo-like dizziness. She was admitted with vertogo and unsteadiness. She has received IVF and replacement of potassium ( on admission potassium was 2.8 meq/L) . she is doing well and after receiving Miralax she had good Bowel movement. She feels good today and will be going home. she is advise to follow with PMD and she will need evaluation by Neurology and ENT. Advise to discuss with PMD and get referal to get Evaluated by Neurology and if needed also by ENT. - Discharge Plan Home Medications: Home Meds Hydrochlorothiazide 25 mg PO DAILY 09/10/14 [History] Latanoprost [Xalatan 0.005% Ophth Soln] 1 drop EYEBOTH BEDTIME 09/10/14 [History ] Levothyroxine 75 mcg PO DAILY 09/10/14 [History] amLODIPine Besylate/Benazepril [Amlodipine-Benazepril 5-10 MG] 1 tab PO DAILY [History] atorvaSTATin [Lipitor] 10 mg PO BEDTIME 09/10/14 [History] Ascorbate Calcium [Vitamin C] 500 mg PO DAILY 07/22/15 [History] Aspirin 81 mg PO BRK 07/22/15 [History] Cinnamon Bark [Cinnamon] 1,000 mg PO DAILY 07/22/15 [History] Cyanocobalamin (Vitamin B-12) [Vitamin B-12] 100 mcg PO DAILY 07/22/15 [History] Flaxseed Oil [Flaxseed] 1,000 mg PO DAILY 07/22/15 [History] LORazepam 0.5 mg PO BID PRN 07/22/15 [History] Meclizine [Antivert] 10 mg PO DAILY PRN 07/22/15 [History] Melatonin 5 mg PO BEDTIME 07/22/15 [History] Multivitamin [Multivitamins] 1 each PO DAILY 07/22/15 [History] Naproxen Sodium [Aleve] 2 tab PO DAILY PRN 07/22/15 [History] Polyethylene Glycol 3350 [Miralax] 17 gm PO DAILY 07/22/15 [History] Patient Handouts: Vertigo, [id number], Hypokalemia, Dizziness, [id number], Diarrhea, Adult, [id number], Polyethylene Glycol powder Forms: ED Department Discharge Referrals: PCP,Unobtain [Ordering Only Provider] - - Discharge Summary/Plan Comment DC Time >30 min.: Yes Discharge Summary/Plan Comment: This is a 76-year-old female with history of vertigo and other comorbidities as above presented with vertigo symptoms. Patient had cold symptoms about 1 week ago and she is recovering from it. My impression patient has labyrinthitis but also could be part of her previous vertigo history which could be benign paroxysmal peripheral vertigo. #Vertigo -Continue Meclizine 25 mg 3 times a day scheduled -Will need evaluation by Neurology and ENT #Hypokalemia - Patient received potassium chloride IV and now potassium is acceptable -Follow PMD and recheck labs, if there is any need for chronic potassium supplement #Hyponatremia It seems to be chronic and will not need supplemental salt tablet #Diarrhea However CT scan reported large amount of stool throughout the colon. For this can be overflow diarrhea. Patient stated that she had colonoscopy 1 year ago and noncancerous polyps were removed -Continue MiraLAX daily and if needded can alao take Senna, Docusate -She had good BM with Miralax #Hypothyroidism Continue levothyroxine #Essential hypertension Continue home medications - General Info Date of Service: 04/18/17 Admission Dx/Problem (Free Text: Admission Diagnosis/Problem Admission Diagnosis/Problem Diarrhea, dizziness and unsteadiness Subjective Update: Today she is feeling good, Dizziness is gone and she is able to come out of bed and walk, nO more acute vertigo like symptom, appetite is good and will be going home Functional Status: Reports: Tolerating Diet, Ambulating, Urinating - Review of Systems General: Reports: Appetite (good). Denies: Fever, Malaise, Chills HEENT: Denies: Ear Pain, Eye Pain, Headaches, Sinus Congestion, Visual Changes Pulmonary: Denies: Shortness of Breath, Pleuritic Chest Pain, Cough, Sputum, Wheezing Cardiovascular: Denies: Chest Pain, Dyspnea on Exertion, Edema Gastrointestinal: Reports: Diarrhea (has improved). Denies: Abdominal Pain, Difficulty Swallowing, Melena, Nausea, Vomiting Genitourinary: Denies: Dysuria, Frequency, Burning, Urgency, Incontinence, Flank Pain Musculoskeletal: Denies: Neck Pain, Shoulder Pain, Arm Pain, Joint Swelling Skin: Denies: Cyanosis, Jaundice Neurological: Denies: Confusion, Numbness, Tremors Psychiatric: Denies: Confusion, Anxiety - Patient Data Vitals - Most Recent: Last Vital Signs Temp 36.8 C 04/18/17 08:46 Pulse 71 04/18/17 08:46 Resp 20 04/18/17 08:46 BP 144/58 H 04/18/17 08:46 Pulse Ox 99 04/18/17 10:02 Weight - Most Recent: 57.153 kg I&O - Last 24 hours: Intake & Output 04/17/17 04/18/17 04/18/17 22:59 06:59 14:59 Intake Total 500 400 200 Output Total 2300 900 Balance -1800 -500 200 Lab Results - Last 24 hrs: Laboratory Results - last 24 hr 04/17/17 04/18/17 04/18/17 Range/Units 14:00 06:15 06:15 WBC 6.3 (5.0-10.0) 10^3/uL RBC 3.99 L (4.2-5.4) 10^6/uL Hgb 13.2 (12.0-16.0) g/dL Hct 38.4 (37.0-47.0) % MCV 96.2 D (80-100) fL MCH 33.1 (27.0-34.0) pg MCHC 34.4 (33.0-35.0) g/dL Plt Count 244 (150-450) 10^3/uL Neut % (Auto) 44.1 (42.2-75.2) % Lymph % (Auto) 43.8 (20.5-50.1) % Dixon % (Auto) 9.2 H (2-8) % Eos % (Auto) 2.4 (1.0-3.0) % Baso % (Auto) 0.5 (0.0-1.0) % Sodium 136 (135-145) mmol/L Potassium 4.3 D 4.6 (3.6-5.0) mmol/L Chloride 106 (101-111) mmol/L Carbon Dioxide 26.0 (21.0-31.0) mmol/L Anion Gap 8.6 BUN 9 (7-18) mg/dL Creatinine 0.5 L (0.6-1.3) mg/dL Est Cr Clr Drug Dosing 85.01 mL/min Estimated GFR (MDRD) > 60 Glucose 91 (74-105) mg/dL Calcium 8.7 (8.4-10.2) mg/dl TSH, Ultra Sensitive (0.45-5.33) uIu/mL 04/18/17 Range/Units 06:15 WBC (5.0-10.0) 10^3/uL RBC (4.2-5.4) 10^6/uL Hgb (12.0-16.0) g/dL Hct (37.0-47.0) % MCV (80-100) fL MCH (27.0-34.0) pg MCHC (33.0-35.0) g/dL Plt Count (150-450) 10^3/uL Neut % (Auto) (42.2-75.2) % Lymph % (Auto) (20.5-50.1) % Dixon % (Auto) (2-8) % Eos % (Auto) (1.0-3.0) % Baso % (Auto) (0.0-1.0) % Sodium (135-145) mmol/L Potassium (3.6-5.0) mmol/L Chloride (101-111) mmol/L Carbon Dioxide (21.0-31.0) mmol/L Anion Gap BUN (7-18) mg/dL Creatinine (0.6-1.3) mg/dL Est Cr Clr Drug Dosing mL/min Estimated GFR (MDRD) Glucose (74-105) mg/dL Calcium (8.4-10.2) mg/dl TSH, Ultra Sensitive 1.85 (0.45-5.33) uIu/mL Med Orders - Current: Current Medications Amlodipine Besylate (Norvasc) 5 mg PO DAILY [facility] Last Admin: 04/18/17 08:38 Dose: 5 mg Ascorbic Acid (Vitamin C) 500 mg PO DAILY [facility] Last Admin: 04/18/17 08:37 Dose: 500 mg Aspirin (Aspirin) 81 mg PO BRK [facility] Last Admin: 04/18/17 08:38 Dose: 81 mg Atorvastatin Calcium (Lipitor) 10 mg PO BEDTIME [facility] Last Admin: 04/17/17 21:16 Dose: 10 mg Benazepril HCl (Lotensin) 10 mg PO DAILY [facility] Last Admin: 04/18/17 08:36 Dose: 10 mg Cyanocobalamin (Vitamin B12) 100 mcg PO DAILY [facility] Last Admin: 04/18/17 08:37 Dose: 100 mcg Docusate Sodium (Colace) 100 mg PO BID PRN PRN Reason: Constipation Enoxaparin Sodium (Lovenox) 40 mg SUBCUT DAILY [facility] Last Admin: 04/18/17 08:38 Dose: 40 mg Hydrochlorothiazide (Hydrochlorothiazide) 25 mg PO DAILY [facility] Last Admin: 04/18/17 08:37 Dose: 25 mg Latanoprost (Xalatan 0.005% Ophth Soln) 0 ml EYEBOTH BEDTIME [facility] Last Admin: 04/17/17 21:19 Dose: 1 drop Levothyroxine Sodium (Levothyroxine) 75 mcg PO DAILY@0600 [facility] Last Admin: 04/18/17 05:46 Dose: 75 mcg Lorazepam (Ativan) 0.5 mg PO BID PRN PRN Reason: Anxiety Magnesium Hydroxide (Milk Of Magnesia) 30 ml PO Q12H PRN PRN Reason: Constipation Meclizine HCl (Antivert) 25 mg PO Q8HR [facility] Last Admin: 04/18/17 05:46 Dose: 25 mg Multivitamins (Thera) 1 each PO DAILY [facility] Last Admin: 04/18/17 08:37 Dose: 1 each Non-Formulary Medication (Cinnamon Bark [Cinnamon]) 1,000 mg PO DAILY [facility] Non-Formulary Medication (Flaxseed Oil [Flaxseed]) 1,000 mg PO DAILY [facility] Non-Formulary Medication (Melatonin [Melatonin]) 5 mg PO BEDTIME [facility] Ondansetron HCl (Zofran) 4 mg IVPUSH Q6H PRN PRN Reason: Nausea/Vomiting Polyethylene Glycol (Miralax) 17 gm PO DAILY [facility] Last Admin: 04/18/17 08:37 Dose: 17 gm Sodium Chloride (Saline Flush) 10 ml FLUSH ASDIRECTED PRN PRN Reason: Keep Vein Open Discontinued Medications Potassium Chloride 10 meq/ (Premix) 100 mls @ 100 mls/hr IV ONETIME ONE Stop: 04/17/17 03:06 Last Admin: 04/17/17 03:08 Dose: 100 mls/hr Sodium Chloride (Normal Saline) 1,000 mls @ 200 mls/hr IV .BOLUS ONE Stop: 04/17/17 07:07 Last Infusion: 04/17/17 09:35 Dose: Infused Sodium Chloride (Normal Saline) 1,000 mls @ 150 mls/hr IV ASDIRECTED NANCY Stop: 04/17/17 16:54 Last Infusion: 04/17/17 18:17 Dose: 150 mls/hr Potassium Chloride (Klor-Con 10) 60 meq PO ONETIME ONE Stop: 04/17/17 08:46 Last Admin: 04/17/17 09:33 Dose: 60 meq - Exam Quality Assessment: Reports: DVT Prophylaxis. Denies: Supplemental Oxygen, Urine Catheter General: Reports: Alert, Oriented, Cooperative, No Acute Distress HEENT: Reports: Pupils Equal, EOMI, Mucous Membr. Moist/[place] Neck: Reports: Supple, No JVD, No Thyromegaly Lungs: Reports: Clear to Auscultation, Normal Respiratory Effort GI/Abdominal Exam: Normal Bowel Sounds, Soft, Non-Tender, No Distention. No: Guarding, Rigid, Rebound (Female) Exam: Deferred Rectal (Female) Exam: Deferred Back Exam: Reports: Normal Inspection, Full Range of Motion Extremities: Normal Inspection, Normal Range of Motion, Non-Tender, No Pedal Edema Skin: Reports: Warm, Dry, Intact Neurological: Reports: No New Focal Deficit Psy/Mental Status: Reports: Alert, Normal Affect, Normal Mood *Q Meaningful Use (DIS) - VTE *Q VTE Criteria *Q: - Stroke *Q Stroke Criteria *Q: - AMI *Q AMI Criteria *Q:
== END 2017-04-18 11:34 | disposition home or self-care (01) | DRG 149 ==
LOC: DL.ED 00:14 → DL.MS 04:00 → UNDOADMOB 04:08 → DL.MS 04:08 → OBSVTOIN 10:02
PROVIDERS: ADMIT Family Medicine; ATTEND Family Medicine
DX: R42 Dizziness and giddiness (principal); H81.10 Benign paroxysmal vertigo, unspecified ear; E87.1 Hypo-osmolality and hyponatremia; E87.6 Hypokalemia; R19.7 Diarrhea, unspecified; R11.0 Nausea; E03.9 Hypothyroidism, unspecified; R26.81 Unsteadiness on feet; H40.9 Unspecified glaucoma; E78.00 Pure hypercholesterolemia, unspecified; I10 Essential (primary) hypertension; Z86.718 Personal history of other venous thrombosis and embolism; M19.90 Unspecified osteoarthritis, unspecified site; F41.9 Anxiety disorder, unspecified; K58.9 Irritable bowel syndrome, unspecified; R05 Cough; Z88.0 Allergy status to penicillin; Z88.2 Allergy status to sulfonamides; Z88.6 Allergy status to analgesic agent; Z79.82 Long term (current) use of aspirin; Z79.899 Other long term (current) drug therapy
CPT/HCPCS: 36415; 70450; 74176; 80053; 81001; 82150; 82272; 83605; 83690; 84484; 85025; 87040 ×2; 87086; 93005 ×2; 96365; 96368; 99285; A9270; J3480; J7030; 80048; 84132; 84443; 93010; 97161-GP; J1650

== ENCOUNTER 2018-05-19 09:57 | Day surgery (SDC) | payer MEDICARE, BC ==
[~2018-05-19 09:57] MED LIST: Dexamethasone/Tobramycin 0.1-0.3% Ophth Oint 3.5 GM Tube ONE
[2018-05-19] MEDS ORDERED: Dexamethasone 4 MG/ML SDV IV ONE (09:58)
[2018-05-19] MEDS ORDERED: Midazolam 1 MG/ML 2 ML SDV IV ONE (09:58)
[2018-05-19] MEDS ORDERED: Sodium Chloride 0.9% 10 ML Syringe IV ONE (09:58)
[2018-05-19] MEDS ORDERED: Ondansetron 4 MG/2 ML SDV IVPUSH PRN (10:00)
[2018-05-19] MEDS ORDERED: Timolol Maleate 0.5% Ophth Soln 5 ML Bottle EYELF ONE (10:00)
[2018-05-19] MEDS ORDERED: Proparacaine 0.5% Ophth Soln 15 ML Bottle EYELF ONE (10:00)
[2018-05-19] MEDS ORDERED: Cataract Ophth Solution EYELF ONE (10:00)
[2018-05-19] MEDS ORDERED: Moxifloxacin 0.5% Ophth Soln 3 ML Bottle EYELF ONE (10:00)
[2018-05-19] MEDS ORDERED: Sodium Chloride 0.9% 10 ML Syringe FLUSH PRN (10:00)
[2018-05-19] MEDS ORDERED: Phenylephrine 10% Ophth Soln 5 ML Bot EYELF ONE (10:00)
[2018-05-19] MEDS ORDERED: Acetaminophen 325 MG Tab PO PRN (10:00)
[2018-05-19] MEDS ORDERED: Povidone-Iodine 5% Sterile Ophth Soln 30 ML Bottle EYELF ONE ×2 (10:00→11:03)
[2018-05-19] MEDS ORDERED: Phenylephrine 10% Ophth Soln 5 ML Bot EYELF PRN (10:30)
[2018-05-19] MEDS ORDERED: Tetracaine HCl/PF 0.5% 4 ML Bottle EYELF ONE (11:02)
[2018-05-19] MEDS ORDERED: Lidocaine 1% 30 ML SDV ONE (11:03)
[2018-05-19] MEDS ORDERED: Dexamethasone/Neomycin/Polymyxin B Ophth Oint 3.5 GM Tube EYELF ONE (11:03)
[2018-05-19] MEDS ORDERED: Diclofenac Sodium 0.1% Ophth Soln 5 ML Bottle EYELF ONE (11:03)
[2018-05-19] MEDS ORDERED: Balanced Salt Solution Ophth Irrig 500 ML Bottle IOCULAR ONE (11:04)
[2018-05-19] MEDS ORDERED: Chondroitin Sulfate/Hyaluronate Sodium Ophth Inj 0.75 ML Syringe EYELF ONE (11:04)
[2018-05-19] MEDS ORDERED: Apraclonidine 0.5% Ophth Soln 5 ML Bot EYELF ONE (11:04)
[2018-05-19] MEDS ORDERED: Dexamethasone 4 MG/ML SDV IOCULAR ONE (11:05)
[2018-05-19] MEDS ORDERED: Vancomycin 500 MG SDV EYELF ONE (11:05)
[2018-05-19] MEDS ORDERED: Dexamethasone/Tobramycin 0.1-0.3% Ophth Oint 3.5 GM Tube EYELF ONE (11:05)
[2018-05-19 11:45] VITALS: BP 102/75
--- NOTE | 2018-05-19 13:28 | OR ---
DATE: 05/19/2018 PREOPERATIVE DIAGNOSIS: Visually significant mixed cataract, left eye. POSTOPERATIVE DIAGNOSIS: Visually significant mixed cataract, left eye. PROCEDURE: Extracapsular cataract extraction with intraocular lens implant, left eye. ANESTHESIA: Topical/local MAC. COMPLICATIONS: None. INDICATION: Mrs. Botello was seen in the clinic. Examination revealed visually significant mixed cataract. She is unhappy with her vision and she has noticed a slow progressive change. She has difficulty reading, difficulty seeing fine print, difficulty with needle work, and difficulty driving. I explained the options, offered cataract surgery, and I explained risks preoperatively including the potential for infection, retinal detachment, loss of vision amongst others. We discussed implant options. She has requested a monofocal implant. We mutually agreed to target mild myopia. She understands that she will likely require glasses following surgery. OPERATIVE DESCRIPTION: After informed consent was obtained and the risks, benefits, and alternatives were explained, the patient was brought to the operative suite and topical anesthesia was administered. The patient was then prepped and draped in the sterile fashion and attention was placed on the left eye. A sterile lid speculum was placed into the left eye to allow operative exposure. A full-thickness paracentesis was made in the temporal portion of the operative eye. Preservative-free lidocaine 0.1 mL was injected into the anterior chamber followed by viscoelastic. A full-thickness corneal incision was then made into the anterior chamber. A bent needle cystotome was used to create a small caroline in the anterior capsule. The capsulorrhexis forceps was then used to create a 360-degree curvilinear capsulorrhexis. The nucleus was then removed using a phacoemulsification handpiece and the remaining cortical material was then removed with irrigation and aspiration handpiece. Following removal of the cortical material, the capsular bag was then inspected and noted to be free of any holes or tears. Viscoelastic was then injected into the capsular bag and the intraocular lens was inserted into the capsular bag. The viscoelastic material was then removed from both the anterior and posterior chambers and from behind the IOL. The lens and capsular bag were then reinspected. The IOL was well centered and the capsular bag intact. The wound and paracentesis sites were inspected and hydrated with balanced saline solution. Both were found to be self- sealing. The intraocular pressure was assessed digitally and found to be within normal range. A good red reflex was noted at the completion of the procedure. No complications occurred during the operation. At the completion of the procedure, Maxitrol, Voltaren, and Iopidine drops were placed into the operative eye. A sterile eye shield was placed over the operative eye and the patient was transported to the postoperative recovery area having tolerated the procedure well. Postoperative instructions were given along with a postoperative appointment. The patient was advised to call with any questions or concerns. [facility] /[id number]
== END 2018-05-19 11:57 | disposition home or self-care (01) ==
LOC: DL.SDS 09:57
PROVIDERS: ATTEND Ophthalmology
DX: E11.36 Type 2 diabetes mellitus with diabetic cataract (principal); H25.812 Combined forms of age-related cataract, left eye; I10 Essential (primary) hypertension; E03.9 Hypothyroidism, unspecified; Z87.891 Personal history of nicotine dependence; Z79.899 Other long term (current) drug therapy; Z79.890 Hormone replacement therapy; Z88.8 Allergy status to other drugs, medicaments and biological substances; Z88.5 Allergy status to narcotic agent; Z88.2 Allergy status to sulfonamides; Z88.0 Allergy status to penicillin
CPT/HCPCS: 66984; A9270; J1100; J2001; J2250; J3370; V2632

== ENCOUNTER 2019-11-25 08:21 | Emergency (ER) | payer MEDICARE, BC ==
[2019-11-25 08:30] VITALS: BP 115/44; PULSE 59
[2019-11-25] MEDS ORDERED: Sodium Chloride 0.9% 1,000 ML IV ONE (08:41)
--- NOTE | 2019-11-25 08:42 | EDM.PDOC ---
ED HPI GENERAL MEDICAL PROBLEM - General Chief Complaint: General Time Seen by Provider: 11/25/19 08:42 Source of Information: Reports: Patient, EMS, EMS Notes Reviewed, RN, RN Notes Reviewed History Limitations: Reports: No Limitations - History of Present Illness INITIAL COMMENTS - FREE TEXT/NARRATIVE: Patient presents to ER per [facility] with complaint of severe dizziness. Patient states she had a little bit of an upset stomach during the night. States this morning she was very dizzy, the room was spinning. Patient does have a history of vertigo and uses meclizine. Patient states she does take the meclizine for 3 to 4 days at a time and then stops use. Patient did recently start on duloxetine, yesterday was the first dose. Patient states she does not want to continue taking that. Patient encouraged to be on something for anxiety/depression. She states she will follow-up in the clinic next week with her primary care provider. Patient denies chest pain, although complains of right rib pain, anteriorly from fall this morning. Patient states she used her 's walker to get up and use the restroom, passed out and woke up on the floor. Patient states she did break her glasses, has a small skin tear above the right eye. Patient denies any weakness to the upper or lower limbs, denies visual disturbances, blurred vision, double vision. Onset: Today, Sudden - Related Data Allergies Allergy/AdvReac Type Severity Reaction Status Date / Time losartan Allergy Other Verified 05/25/18 12:17 oxycodone Allergy Dizziness Verified 05/25/18 12:17 penicillin Allergy Swelling Verified 05/25/18 12:17 Sulfa (Sulfonamide Allergy Itching Verified 05/25/18 12:17 Antibiotics) hydrocodone AdvReac Nausea Verified 05/25/18 12:17 Home Meds: Home Meds Hydrochlorothiazide 25 mg PO DAILY 09/10/14 [History] Latanoprost [Xalatan 0.005% Ophth Soln] 1 drop EYEBOTH BEDTIME 09/10/14 [History] Levothyroxine 75 mcg PO DAILY 09/10/14 [History] amLODIPine Besylate/Benazepril [Amlodipine-Benazepril 5-10 MG] 1 tab PO DAILY 09/10/14 [History] atorvaSTATin [Lipitor] 10 mg PO BEDTIME 09/10/14 [History] Aspirin 81 mg PO BEDTIME 07/22/15 [History] Cinnamon Bark [Cinnamon] 500 mg PO BID 07/22/15 [History] Cyanocobalamin (Vitamin B-12) [Vitamin B-12] 500 mcg PO DAILY 07/22/15 [History] LORazepam 0.5 mg PO BEDTIME PRN 07/22/15 [History] Meclizine [Antivert] 25 mg PO Q6HR PRN 07/22/15 [History] Melatonin 5 mg PO BEDTIME 07/22/15 [History] Multivitamin [Multivitamins] 1 each PO DAILY 07/22/15 [History] polyethylene glycoL 3350 [Miralax] 17 gm PO DAILY 07/22/15 [History] Calcium Citrate/Vitamin D3 [Calcium Citrate - Vit D Caplet] 1 each PO DAILY 05/18/18 [History] Ibuprofen [Advil] 400 mg PO .PRN PRN 05/18/18 [History] Loratadine 10 mg PO .PRN PRN 05/18/18 [History] Propylene Glycol/PEG 400/Pf [Systane 0.3-0.4% Eye Drop] 1 drop EYEBOTH .PRN PRN 05/18/18 [History] Past Medical History HEENT History: Reports: Cataract, Glaucoma, Impaired Vision Other HEENT History: suspect for glaucoma Cardiovascular History: Reports: Blood Clots/VTE/DVT, High Cholesterol, Hypertension Other Cardiovascular History: DVT 2014 Respiratory History: Reports: Sleep Apnea Gastrointestinal History: Reports: Colon Polyp, Diverticulosis, Hemorrhoids, Irritable Bowel Syndrome Genitourinary History: Reports: None 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: Musculoskeletal History: Reports: Arthritis, Gout, Other (See Below) Other Musculoskeletal History: osteopenia Neurological History: Reports: Migraines Other Neuro History: possible migraine in past; not confirmed Psychiatric History: Reports: Anxiety Endocrine/Metabolic History: Reports: Hypothyroidism, Osteopenia, Other (See Below) Other Endocrine/Metabolic History: Impaired fasting glucose Hematologic History: Reports: B12 Deficiency, Other (See Below) Other Hematologic History: factor 5 Leiden Immunologic History: Reports: None Oncologic (Cancer) History: Reports: None Dermatologic History: Reports: None - Infectious Disease History Infectious Disease History: Reports: Chicken Pox, Measles - Past Surgical History Head Surgeries/Procedures: Reports: None HEENT Surgical History: Reports: Adenoidectomy, Cataract Surgery, Tonsillectomy Cardiovascular Surgical History: Reports: Vascular Surgery Other Cardiovascular Surgeries/Procedures: Right leg microphlebectomy GI Surgical History: Reports: Appendectomy, Colonoscopy, Polypectomy Female Surgical History: Reports: Breast Biopsy, Hysterectomy, Salpingo- Oophorectomy Other Female Surgeries/Procedures: Right breast biopsy. BSO Musculoskeletal Surgical History: Reports: Other (See Below) Other Musculoskeletal Surgeries/Procedures:: bilateral bunion surgery, hammer toe repair Social & Family History - Family History Family Medical History: Noncontributory HEENT: Reports: Glaucoma Cardiac: Reports: Heart Failure, Hypertension, [place] Respiratory: Reports: None GI: Reports: None : Reports: None OBGYN: Reports: None Musculoskeletal: Reports: Arthritis Neurological: Reports: CVA Psychiatric: Reports: None Endocrine/Metabolic: Reports: Diabetes, type II, Hypothyroidism Immunologic: Reports: None Dermatologic: Reports: Eczema Oncologic: Reports: Breast, Ovarian - Caffeine Use Caffeine Use: Reports: Soda Caffeine Use Comment: 1 - Living Situation & Occupation Living situation: Reports: , with Spouse Occupation: Retired ED ROS GENERAL - Review of Systems Review Of Systems: Comprehensive ROS is negative, except as noted in HPI. ED EXAM, GENERAL - Physical Exam Exam: See Below Exam Limited By: No Limitations General Appearance: Alert, WD/WN Eye Exam: Bilateral Eye: EOMI, Normal Inspection Ears: Normal External Exam, Hearing Grossly Normal Nose: Normal Inspection Throat/Mouth: Normal Inspection, Normal Lips, Normal Teeth, Normal Gums, Normal Oropharynx, Normal Voice, No Airway Compromise Head: Atraumatic, Normocephalic Neck: Normal Inspection, Supple, Non-Tender, Full Range of Motion Respiratory/Chest: No Respiratory Distress, Lungs Clear, Normal Breath Sounds, No Accessory Muscle Use, Other (tenderness to the ribs on the right anteriorly) Cardiovascular: Normal Peripheral Pulses, Regular Rate, Rhythm, No Edema, No Gallop, No JVD, No Murmur, No Rub, Bradycardia Peripheral Pulses: 2+: Radial (L), Radial (R) GI/Abdominal: Normal Bowel Sounds, Soft, Non-Tender (Female) Exam: Deferred Rectal (Female) Exam: Deferred Back Exam: Normal Inspection, Full Range of Motion, NT Extremities: Normal Inspection, Normal Range of Motion, Non-Tender, Normal Capillary Refill, No Pedal Edema Neurological: Alert, Oriented, CN II-XII Intact, Normal Cognition, Normal Gait, Normal Reflexes, No Motor/Sensory Deficits Psychiatric: Normal Affect, Normal Mood Skin Exam: Warm, Dry, Intact, Normal Color, No Rash Lymphatic: No Adenopathy Course - Vital Signs Last Recorded V/S: Last Vital Signs Temp 96.5 F L 11/25/19 08:23 Pulse 59 L 11/25/19 08:23 Resp 16 11/25/19 08:23 BP 115/44 L 11/25/19 08:23 Pulse Ox 100 11/25/19 08:23 - Orders/Labs/Meds Orders: Active Orders 24 hr Category Date Time Status EKG Documentation Completion [RC] STAT Care 11/25/19 08:29 Active CULTURE URINE [RM] Stat Lab 11/25/19 10:02 Received Sodium Chloride 0.9% [Normal Saline] 1,000 ml Med 11/25/19 08:41 Active IV .BOLUS Medication Orders Sodium Chloride (Normal Saline) 1,000 mls @ 200 mls/hr IV .BOLUS ONE Stop: 11/25/19 13:40 Last Admin: 11/25/19 08:55 Dose: 200 mls/hr Documented by: CHIDI Labs: Laboratory Tests 11/25/19 11/25/19 11/25/19 Range/Units 08:45 08:45 08:45 WBC 5.8 (5.0-10.0) 10^3/uL RBC 4.40 (4.2-5.4) 10^6/uL Hgb 14.4 (12.0-16.0) g/dL Hct 40.6 (37.0-47.0) % MCV 92.3 D (80-100) fL MCH 32.7 (27.0-34.0) pg MCHC 35.5 H (33.0-35.0) g/dL Plt Count 245 (150-450) 10^3/uL Neut % (Auto) 66.0 (42.2-75.2) % Lymph % (Auto) 26.1 (20.5-50.1) % [place] % (Auto) 6.5 (2-8) % Eos % (Auto) 0.9 L (1.0-3.0) % Baso % (Auto) 0.5 (0.0-1.0) % PT 10.1 D (9.0-12.0) SEC INR 1.1 (0.9-1.2) Sodium 129 L (136-145) mmol/L Potassium 3.8 (3.5-5.1) mmol/L Chloride 94 L (98-107) mmol/L Carbon Dioxide 27 (21-32) mmol/L Anion Gap 11.8 (7-13) mEq/L BUN 14 (7-18) mg/dL Creatinine 0.67 (0.55-1.02) mg/dL Est Cr Clr Drug Dosing 48.10 mL/min Estimated GFR (MDRD) > 60 BUN/Creatinine Ratio 20.9 (No establ ref range) Glucose 161 H (74-99) mg/dL Calcium 8.8 (8.5-10.1) mg/dL Total Bilirubin 0.7 (0.2-1.0) mg/dL AST 19 (15-37) U/L ALT 26 (14-59) U/L Alkaline Phosphatase 96 (46-116) U/L Troponin I < 0.017 (0.000-0.056) ng/mL Total Protein 6.7 (6.4-8.2) g/dL Albumin 3.8 (3.4-5.0) g/dL Globulin 2.9 Albumin/Globulin Ratio 1.3 Urine Color (YELLOW) Urine Appearance (CLEAR) Urine pH (5.0-9.0) Ur Specific [place] (1.005-1.030) Urine Protein (NEGATIVE) Urine Glucose (UA) (NEGATIVE) Urine Ketones (NEGATIVE) Urine Occult Blood (NEGATIVE) Urine Nitrite (NEGATIVE) Urine Bilirubin (NEGATIVE) Urine Urobilinogen (0.2-1.0) mg/dL Ur Leukocyte Esterase (NEGATIVE) Urine RBC /HPF Urine WBC (0-5/HPF) /HPF Ur Epithelial Cells (NOT SEEN) /HPF Amorphous Sediment (NOT SEEN) /HPF Urine Bacteria (0-FEW/HPF) /HPF Urine Mucus (NOT SEEN) /LPF 11/25/19 Range/Units 10:02 WBC (5.0-10.0) 10^3/uL RBC (4.2-5.4) 10^6/uL Hgb (12.0-16.0) g/dL Hct (37.0-47.0) % MCV (80-100) fL MCH (27.0-34.0) pg MCHC (33.0-35.0) g/dL Plt Count (150-450) 10^3/uL Neut % (Auto) (42.2-75.2) % Lymph % (Auto) (20.5-50.1) % [place] % (Auto) (2-8) % Eos % (Auto) (1.0-3.0) % Baso % (Auto) (0.0-1.0) % PT (9.0-12.0) SEC INR (0.9-1.2) Sodium (136-145) mmol/L Potassium (3.5-5.1) mmol/L Chloride (98-107) mmol/L Carbon Dioxide (21-32) mmol/L Anion Gap (7-13) mEq/L BUN (7-18) mg/dL Creatinine (0.55-1.02) mg/dL Est Cr Clr Drug Dosing mL/min Estimated GFR (MDRD) BUN/Creatinine Ratio (No establ ref range) Glucose (74-99) mg/dL Calcium (8.5-10.1) mg/dL Total Bilirubin (0.2-1.0) mg/dL AST (15-37) U/L ALT (14-59) U/L Alkaline Phosphatase (46-116) U/L Troponin I (0.000-0.056) ng/mL Total Protein (6.4-8.2) g/dL Albumin (3.4-5.0) g/dL Globulin Albumin/Globulin Ratio Urine Color Yellow (YELLOW) Urine Appearance Clear (CLEAR) Urine pH 8.5 (5.0-9.0) Ur Specific [place] 1.020 (1.005-1.030) Urine Protein Negative (NEGATIVE) Urine Glucose (UA) Negative (NEGATIVE) Urine Ketones 15 H (NEGATIVE) Urine Occult Blood Negative (NEGATIVE) Urine Nitrite Negative (NEGATIVE) Urine Bilirubin Negative (NEGATIVE) Urine Urobilinogen 0.2 (0.2-1.0) mg/dL Ur Leukocyte Esterase Small H (NEGATIVE) Urine RBC 0-5 /HPF Urine WBC 5-10 H (0-5/HPF) /HPF Ur Epithelial Cells Few (NOT SEEN) /HPF Amorphous Sediment Few (NOT SEEN) /HPF Urine Bacteria Rare (0-FEW/HPF) /HPF Urine Mucus Rare (NOT SEEN) /LPF Meds: Medications Generic Name Dose Route Start Last Admin Trade Name Freq PRN Reason Stop Dose Admin Sodium Chloride 1,000 mls @ 200 mls/hr 11/25/19 08:41 11/25/19 08:55 Normal Saline IV 11/25/19 13:40 200 mls/hr .BOLUS ONE Administration Discontinued Medications Generic Name Dose Route Start Last Admin Trade Name Freq PRN Reason Stop Dose Admin Meclizine HCl 25 mg 11/25/19 09:13 11/25/19 09:50 Antivert PO 11/25/19 09:14 25 mg ONETIME ONE Administration - Radiology Interpretation Free Text/Narrative:: R ribs with chest xray: PROCEDURE INFORMATION: Exam: XR Right Ribs with PA Chest, 3 Views Exam date and time: 11/25/2019 9:32 AM Age: 79 years old Clinical indication: Injury or trauma; Fall; Initial encounter; Rib area; Blunt trauma (contusions or hematomas); Additional info: Dizziness, syncopal episode TECHNIQUE: Imaging protocol: XR Right ribs 3 views with PA chest. COMPARISON: No relevant prior studies available. FINDINGS: Lungs: Scattered benign right lung calcified pulmonary nodules. Pleural space: Normal. Heart/Mediastinum: Normal heart and cardiomediastinal silhouette. Vasculature: Vascular calcification at the level of the aortic knob. Bones/joints: All ribs are intact and normally aligned. Soft tissues: Normal. IMPRESSION: 1. Negative for fracture or acute disease. 2. Atherosclerosis and benign calcified right lung pulmonary granulomas. Thank you for allowing us to participate in the care of your patient. Dictated and Authenticated by: Erick Velásquez MD 11/25/2019 9:55 AM Central Time ([place] & [place]) Head CT: PROCEDURE INFORMATION: Exam: CT Head Without Contrast Exam date and time: 11/25/2019 9:38 AM Age: 79 years old Clinical indication: Injury or trauma; Fall; Initial encounter; Blunt trauma (contusions or hematomas); Consciousness not specified; Additional info: Dizziness, syncopal episode TECHNIQUE: Imaging protocol: Computed tomography of the head without contrast. Radiation optimization: All CT scans at this facility use at least one of these dose optimization techniques: automated exposure control; mA and/or kV adjustment per patient size (includes targeted exams where dose is matched to clinical indication); or iterative reconstruction. COMPARISON: CT Head wo Cont 04/17/2017 2:28 AM FINDINGS: Brain: No mass, intracranial hemorrhage, or brain edema. No transcortical defect. Normal cerebellum and brainstem. Mild chronic subcortical white matter hypoattenuation and bifrontal periventricular hypoattenuation. Questionable tiny lacunar defect in the region of right internal capsule anterior limb. Cerebral ventricles: No ventriculomegaly. Bones/joints: Normal. Paranasal sinuses: Visualized sinuses are unremarkable. No fluid levels. Mastoid air cells: Normal. Soft tissues: Unremarkable. IMPRESSION: No acute intracranial abnormality. Mild chronic white matter disease in questionable old right basal ganglia lacunar infarct. Thank you for allowing us to participate in the care of your patient. Dictated and Authenticated by: Erick Velásquez MD 11/25/2019 9:53 AM Central Time ([place] & [place]) See rad report Departure - Departure Time of Disposition: 11:32 Disposition: Home, Self-Care 01 Condition: Good Clinical Impression: Vertigo Fall at home Qualifiers: Encounter type: initial encounter Qualified Code(s): W19.XXXA - Unspecified fall, initial encounter - Discharge Information *PRESCRIPTION DRUG MONITORING PROGRAM REVIEWED*: No *COPY OF PRESCRIPTION DRUG MONITORING REPORT IN PATIENT AISLINN: No Instructions: Dizziness, [id number] Forms: ED Department Discharge Additional Instructions: Follow-up with your primary care provider next week Rx: Meclizine Return to the ER with worsening of symptoms Sit up, stand up slowly Drink plenty of water Sepsis Event Note (ED) - Evaluation Sepsis Screening Result: No Definite Risk - Focused Exam Vital Signs: Vital Signs Temp Pulse Resp BP Pulse Ox 11/25/19 08:23 96.5 F L 59 L 16 115/44 L 100 - My Orders Last 24 Hours: My Active Orders 11/25/19 08:29 EKG Documentation Completion [RC] STAT 11/25/19 08:41 Sodium Chloride 0.9% [Normal Saline] 1,000 ml IV .BOLUS 11/25/19 10:02 CULTURE URINE [RM] Stat - Assessment/Plan Last 24 Hours: My Active Orders 11/25/19 08:29 EKG Documentation Completion [RC] STAT 11/25/19 08:41 Sodium Chloride 0.9% [Normal Saline] 1,000 ml IV .BOLUS 11/25/19 10:02 CULTURE URINE [] Stat
[2019-11-25] MEDS ORDERED: Meclizine 12.5 MG Tab PO ONE (09:13)
[2019-11-25 09:14] LABS: ANION GAP 11.8 mEq/L (7-13); CHLORIDE,CL 94 mmol/L (98-107); SODIUM,NA 129 mmol/L (136-145)
--- NOTE | 2019-11-25 09:54 | CT ---
PROCEDURE INFORMATION: Exam: CT Head Without Contrast Exam date and time: 11/25/2019 9:38 AM Age: 79 years old Clinical indication: Injury or trauma; Fall; Initial encounter; Blunt trauma (contusions or hematomas); Consciousness not specified; Additional info: Dizziness, syncopal episode TECHNIQUE: Imaging protocol: Computed tomography of the head without contrast. Radiation optimization: All CT scans at this facility use at least one of these dose optimization techniques: automated exposure control; mA and/or kV adjustment per patient size (includes targeted exams where dose is matched to clinical indication); or iterative reconstruction. COMPARISON: CT Head wo Cont 04/17/2017 2:28 AM FINDINGS: Brain: No mass, intracranial hemorrhage, or brain edema. No transcortical defect. Normal cerebellum and brainstem. Mild chronic subcortical white matter hypoattenuation and bifrontal periventricular hypoattenuation. Questionable tiny lacunar defect in the region of right internal capsule anterior limb. Cerebral ventricles: No ventriculomegaly. Bones/joints: Normal. Paranasal sinuses: Visualized sinuses are unremarkable. No fluid levels. Mastoid air cells: Normal. Soft tissues: Unremarkable. IMPRESSION: No acute intracranial abnormality. Mild chronic white matter disease in questionable old right basal ganglia lacunar infarct.
--- NOTE | 2019-11-25 09:55 | CR ---
PROCEDURE INFORMATION: Exam: XR Right Ribs with PA Chest, 3 Views Exam date and time: 11/25/2019 9:32 AM Age: 79 years old Clinical indication: Injury or trauma; Fall; Initial encounter; Rib area; Blunt trauma (contusions or hematomas); Additional info: Dizziness, syncopal episode TECHNIQUE: Imaging protocol: XR Right ribs 3 views with PA chest. COMPARISON: No relevant prior studies available. FINDINGS: Lungs: Scattered benign right lung calcified pulmonary nodules. Pleural space: Normal. Heart/Mediastinum: Normal heart and cardiomediastinal silhouette. Vasculature: Vascular calcification at the level of the aortic knob. Bones/joints: All ribs are intact and normally aligned. Soft tissues: Normal. IMPRESSION: 1. Negative for fracture or acute disease. 2. Atherosclerosis and benign calcified right lung pulmonary granulomas.
== END 2019-11-25 11:36 | disposition home or self-care (01) ==
LOC: DL.ED 08:21
DX: R42 Dizziness and giddiness (principal); E78.00 Pure hypercholesterolemia, unspecified; I10 Essential (primary) hypertension; M10.9 Gout, unspecified; E03.9 Hypothyroidism, unspecified; Z88.8 Allergy status to other drugs, medicaments and biological substances; Z88.5 Allergy status to narcotic agent; Z88.0 Allergy status to penicillin; Z88.2 Allergy status to sulfonamides; Z79.82 Long term (current) use of aspirin; Z79.899 Other long term (current) drug therapy
CPT/HCPCS: 36415; 70450; 71101; 80053; 81001; 84484; 85025; 85610; 87086; 93005; 96360; 99285; A9270; J7030; 99283

== ENCOUNTER 2021-12-21 11:59 | Emergency (ER) | payer MEDICARE, BC ==
[2021-12-21] MEDS ORDERED: Sodium Chloride 0.9% 10 ML Syringe FLUSH PRN (12:13)
[2021-12-21 12:20] VITALS: BP 147/73; PULSE 88
[2021-12-21] MEDS ORDERED: Sodium Chloride 0.9% 1,000 ML IV ONE (12:28)
[2021-12-21 12:35] LABS: ANION GAP 13.2 mEq/L (7-13); CHLORIDE,CL 103 mmol/L (98-107); SODIUM,NA 138 mmol/L (136-145)
[2021-12-21 12:38] LABS: ESTIMATED GFR 88 mL/min (>=60)
[2021-12-21] MEDS ORDERED: Pantoprazole 40 MG Vial IVPUSH ONE (13:26)
[2021-12-21] MEDS ORDERED: Pantoprazole 40 MG in Sodium Chloride 0.9% 100 ML IV SCH (13:30)
== END 2021-12-21 14:38 ==
LOC: DL.ED 11:59
DX: K92.2 Gastrointestinal hemorrhage, unspecified (principal); E78.00 Pure hypercholesterolemia, unspecified; I10 Essential (primary) hypertension; Z88.8 Allergy status to other drugs, medicaments and biological substances; Z88.5 Allergy status to narcotic agent; Z88.0 Allergy status to penicillin; Z88.2 Allergy status to sulfonamides; Z79.899 Other long term (current) drug therapy; Z79.82 Long term (current) use of aspirin; Z90.49 Acquired absence of other specified parts of digestive tract; Z90.710 Acquired absence of both cervix and uterus
CPT/HCPCS: 36415; 80053; 81001; 82272; 83605; 83735; 85025; 85610; 86140; 87086; 93005; 96361; 96374; 99285-25; C9113; J3490; J7030

== ENCOUNTER 2022-05-02 06:26 | Day surgery (SDC) | payer MEDICARE, BC ==
[~2022-05-02 06:26] MED LIST changes: -Dexamethasone/Tobramycin 0.1-0.3% Ophth Oint 3.5 GM Tube ONE; +Midazolam 1 MG/ML 2 ML SDV ONE; +Sodium Chloride 0.9% 10 ML Syringe FLUSH SCH; +fentaNYL 100 MCG/2 ML SDV ONE
[2022-05-02] MEDS ORDERED: Midazolam 1 MG/ML 2 ML SDV IV ONE ×4 (06:27→07:11)
[2022-05-02] MEDS ORDERED: fentaNYL 100 MCG/2 ML SDV IV ONE ×3 (06:27→07:09)
[2022-05-02] MEDS ORDERED: Sodium Chloride 0.9% 10 ML Syringe FLUSH PRN (06:30)
[2022-05-02] MEDS ORDERED: Dextrose 5%-0.45% NaCl 1,000 ML IV SCH (06:30)
[2022-05-02 08:56] VITALS: BP 101/54; PULSE 60
== END 2022-05-02 09:15 | disposition home or self-care (01) ==
LOC: DL.ENDO 06:26
PROVIDERS: ATTEND Internal Medicine Gastroenterology
DX: K25.0 Acute gastric ulcer with hemorrhage (principal); R79.89 Other specified abnormal findings of blood chemistry; E78.5 Hyperlipidemia, unspecified; I10 Essential (primary) hypertension; E03.9 Hypothyroidism, unspecified; M85.80 Other specified disorders of bone density and structure, unspecified site; Z87.891 Personal history of nicotine dependence; Z79.82 Long term (current) use of aspirin
CPT/HCPCS: J2250; J3010; J7042